=== PATIENT | male | born 1985 | race Caucasian/White ===

== ENCOUNTER 2024-10-18 15:23 | Emergency (ER) | payer OTHER, SELFPAY ==
[2024-10-18 15:35] VITALS: BP 169/97
[2024-10-18 16:39] VITALS: BMI 47.8
--- NOTE | 2024-10-18 18:19 | ED.GENMED ---
History of Present Illness
General
Chief Complaint: Skin Problem
Time Seen by Provider: 10/18/24 18:19
History of Present Illness
History of Present Illness:
TIME OF INITIAL EVALUATION
- 6:30 PM
REVIEW OF OLD RECORDS
- No significant old records available for review
CHIEF COMPLAINT(S)
Persistent swelling and firmness in the leg.
HISTORY OF PRESENT ILLNESS
The patient is a 39-year-old male who reports the development of a weird bump on his leg approximately 10 to 14 days ago, which was initially red, swollen, and very sore to touch. He did not recall any specific incident leading to the bump and
initially thought it might be an insect bite. The patient sought care at an urgent care facility where they considered the possibility of a spider bite and prescribed amoxicillin. While the redness and swelling have improved, the firmness persists
and seems to have extended. The patient describes the firmness as progressively spreading and becoming painful only when touched. Despite the swelling, he reports feeling otherwise well and denies any fever, respiratory symptoms, or other systemic
symptoms. The persistence of the symptoms has been concerning to his spouse, given the duration of over two weeks.
PHYSICAL EXAM
General: Alert, no acute distress, elevated BMI.
Skin: Warm, dry. There is noted firmness in the affected leg without acute redness.
Head: Normocephalic, atraumatic.
Neck: Supple, trachea midline.
Eye, Ears, Nose, Mouth, and Throat: Oral mucosa moist.
Cardiovascular: Normal peripheral perfusion, No edema.
Respiratory: Respirations are non-labored.
Gastrointestinal: Abdomen nondistended.
Musculoskeletal: Suggestion of some indurated tissue in the curvilinear area of about 10 cm that could be consistent with superficial thrombophlebitis as well, no clear sign of cellulitis
Neurological: Alert and oriented to person, place, time, and situation, No focal neurological deficit observed.
Psychiatric: Cooperative, appropriate mood & affect.
PLAN
1. Order an ultrasound of the leg to evaluate for possible soft tissue inflammation or vascular issues such as superficial thrombophlebitis or a blood clot.
2. Consider switching to a different antibiotic based on ultrasound results and clinical assessment.
DIFFERENTIAL DIAGNOSIS
The Differential Diagnosis includes, in no particular order and is not limited to:
1. Cellulitis
2. Abscess
3. Deep Vein Thrombosis
4. Superficial Thrombophlebitis
5. Lipoma
6. Hematoma
7. Insect bite reaction
8. Lymphedema
9. Allergic Reaction
10. Soft tissue sarcoma.
RADIOLOGY
- Ultrasound obtained
SUMMARY OF ENCOUNTER
The patient presented with persistent swelling and firmness in the leg. An ultrasound was ordered to evaluate for potential soft tissue inflammation or vascular issues. The ultrasound report from the radiologist showed no evidence of a blood clot in
the deep veins, suggesting superficial thrombophlebitis. The condition is not life-threatening but could increase the risk of varicose veins in the future. The initial diagnosis of an infection was reconsidered, and it was determined that further
antibiotics were unnecessary. Anti-inflammatory treatment and compresses were recommended as part of the management strategy.
PLAN
The patient is advised to apply compresses to the affected area and take anti-inflammatory medications, such as ibuprofen (Motrin), at a prescription-strength dosage.
PATIENT EDUCATION AND COUNSELING
The patient was informed about the nature of superficial thrombophlebitis, its [id number] status, and the recommended management steps to alleviate discomfort.
FOLLOW-UP INSTRUCTIONS
The patient was advised to continue monitoring symptoms and follow up as needed if symptoms persist or worsen.
MEDICATION RECONCILIATION
The patient is advised to take ibuprofen (Motrin) at prescription strength for anti-inflammatory purposes.
MEDICAL DECISION MAKING
-Complexity of Data Reviewed: The differential diagnosis included cellulitis, abscess, deep vein thrombosis, superficial thrombophlebitis, lipoma, hematoma, insect bite reaction, lymphedema, allergic reaction, and soft tissue sarcoma.
-Data:
Category 1
Non-emergency department records reviewed, if applicable. External record reviewed: Radiology report indicating no deep vein thrombosis.
My independent interpretation of ultrasound imaging suggests superficial thrombophlebitis.
-Risk: Prescription medication was prescribed with consideration of non-steroidal anti-inflammatory drugs for management.
DIAGNOSIS
Superficial thrombophlebitis (ICD-10: I80.0).
Phy Exam
Physical Exam
Physical Exam:
See HPI
Course
Orders/Labs/Results
Orders:
Orders
10/18/24 18:26
US Periph Venous LOWER Ext RT Urgent
Comment:
Reason For Exam: pain swelling, please also scan lateral R thigh ST
Vital Signs
Initial and Last Documented VS:
Initial Vital Signs
Temp Pulse Resp BP Pulse Ox
36.6 C 62 18 169/97 98
10/18/24 15:35 10/18/24 15:35 10/18/24 15:35 10/18/24 15:35 10/18/24 15:35
Last Documented Vital Signs
Temp Pulse Resp BP Pulse Ox
36.6 C 62 18 169/97 98
10/18/24 15:35 10/18/24 15:35 10/18/24 15:35 10/18/24 15:35 10/18/24 18:20
*Pulse Oximetry
SaO2: 98
Oxygen Mode of Delivery: Room air
Patient hypoxic: no
*Critical Care Note
Total Time (30-74mins, 75-104mins- exclusive of procedures): Not Applicable
ED Attending Note
-
Portions of this chart may have been created with voice recognition software.� Occasional wrong word or��sound alike� substitutions may have occurred due to the inherent limitations of voice recognition software.
Discharge Plan
Departure
Prescriptions:
No Action
Theragen Tablet
1 tab PO DAILY
testosterone cypionate 200 mg/mL Oil
170 mg IM TU
Patient Comments:
10/18/2024, gets this injection at [address] [place], [id number].
amoxicillin-pot clavulanate 875-125 mg Tablet
1 tab PO BID
Patient Comments:
10/18/2024, filled on 10/12/2024 and instructed to take 1 tablet BID for 7 days.
Visbiome 112.5 billion cell Capsule
1 cap PO DAILY
creatine monohydrate 5,000 mg Powder In Packet
5,000 mg PO DAILY
HCG
1 dose IM TU
Patient Comments:
10/18/2024, pt. unsure of dose; gets this injection at [address] [place], [id number].
Referrals:
Antolin Caicedo CRNP [Family Provider, General]
Interventions
Interventions:
*Risk Screen - Suicide Last Done: 10/18/24 15:35
*Neglect/Abuse Screening Last Done: 10/18/24 15:35
ED-Skin Assessment Last Done: 10/18/24 16:39
Discharge Date and Time
Print Language: BURKIN[place]
[2024-10-18 19:24] VITALS: BP 154/66
== END 2024-10-18 19:28 | disposition home or self-care (01) ==
LOC: EMR 15:23
PROVIDERS: EMERGENCY PHYSICIAN Emergency Medicine; FAMILY PHYSICIAN Nurse Practitioner Family
DX: M79.651 Pain in right thigh (principal); M79.89 Other specified soft tissue disorders; I80.01 Phlebitis and thrombophlebitis of superficial vessels of right lower extremity
CPT/HCPCS: 99284; 93971